=== PATIENT | female | born 1980 | race Caucasian/White ===

== ENCOUNTER 2020-03-23 18:37 | Emergency (ER) | payer OTHER, SELFPAY ==
[2020-03-23 18:45] VITALS: BP 136/74; PULSE 61; RESP 20; TEMP 37.2; O2SAT 99
--- NOTE | 2020-03-23 18:46 | ED.URI ---
HPI - URI/Sore Throat General Chief Complaint: Upper Respiratory Infection Stated Complaint: Sore throat Time Seen by Provider: 03/23/20 18:47 Source: patient and RN notes reviewed History of Present Illness HPI Narrative: Patient is a 39-year-old female who presents the urgent care with complaints of a sore throat. Patient states that she woke up with a scratchy throat yesterday and then a sore throat this morning. Patient states she also has a low-grade fever. Patient states she is prone to strep but denies any recent exposure. States that her ex- did have the kids last week and he is a nurse who was exposed to COVID and did test positive. Patient states that the child that stated her house was not exposed that she has not seen the child but is living with him since the positive test result. States that her children both tested negative. Otherwise patient denies of any other recent exposure to COVID. No other acute complaints. No acute distress noted. Patient has not taken anything for her symptoms [id number]. Patient aware of the plan of care. Related Data Home Medications Medication Instructions Recorded Confirmed No Home Medications 03/23/20 03/23/20 Allergies Allergy/AdvReac Type Severity Reaction Status Date / Time amoxicillin AdvReac Mild MAKES SICK Verified 09/17/18 17:29 clavulanic acid AdvReac Mild MAKES SICK Verified 09/17/18 17:29 Review of Systems Review of Systems: Narrative: CONSTITUTIONAL:reports of low grade fever EYES: Denies visual changes, redness, or discharge. ENT: reports of sore throat CARDIOVASCULAR: Denies chest pain, palpitations, or edema. RESPIRATORY: Denies cough or dyspnea. GASTROINTESTINAL: Denies abdominal pain, nausea, vomiting, or diarrhea. GENITOURINARY: Denies dysuria or hematuria. SKIN: Denies rash or itching. MUSCULOSKELETAL: Denies back pain, joint pain, or myalgia. NEUROLOGIC: Denies headache, numbness, or weakness. All other systems reviewed are negative, except as documented in HPI. PMFSH Comments At the time of my signature, I reviewed and agree with the nursing past medical, surgical, social, and family history. There is no relevant family history pertinent to the patient complaint. Exam Narrative: Exam Narrative: GENERAL: This is a well-nourished, well-developed patient, in no apparent distress. HEAD: normocephalic, atraumatic. EYES: PERRL. Sclera clear/white. Vision is grossly intact. EARS: External ears normal, auditory canals clear and without drainage, TMs normal without perforation. Hearing grossly intact. NOSE: External nose normal with no obvious nasal discharge, nares without redness, no rhinorrhea. THROAT: Mucous membranes moist, posterior pharynx clear. Mild erythema in the posterior oropharynx NECK: Neck supple, SKIN: warm, intact with no suspicious lesions or rash, good texture and turgor. NEURO: awake, alert, and oriented to person, place and time. There were no obvious focal neurologic abnormalities. EXTREMITIES: No clubbing, cyanosis, or edema. Course Vital Signs Vital signs: Vital Signs Temperature 99 F 03/23/20 18:45 Pulse Rate 61 03/23/20 18:45 Respiratory Rate 20 03/23/20 18:45 Blood Pressure 136/74 03/23/20 18:45 Pulse Oximetry 99 03/23/20 18:45 Temperature 99 F 03/23/20 18:45 Pulse Rate 61 03/23/20 18:45 Respiratory Rate 20 03/23/20 18:45 Blood Pressure 136/74 03/23/20 18:45 Pulse Oximetry 99 03/23/20 18:45 reviewed MDM - URI/Sore Throat MDM Narrative Medical decision making narrative: Reviewed lab results with the patient. Patient is aware that strep swab was negative. Educated patient on culture and we will call within 72 hours if culture is positive and antibiotics are necessary. Advised the patient to remain quarantined until she has a negative COVID swab. Use [id number] medication as needed for symptom relief such as Zyrtec/Claritin and Flonase nasal spray. Use Tylenol/ibuprofe
== END 2020-03-23 19:16 | disposition home or self-care (01) ==
PROVIDERS: Emergency Provider Nurse Practitioner Family
DX: J02.9 Acute pharyngitis, unspecified (principal); Z20.828 Contact with and (suspected) exposure to other viral communicable diseases
CPT/HCPCS: 87081; 87880; 99213; G0463

== ENCOUNTER 2021-11-24 09:27 | Emergency (ER) | payer OTHER, SELFPAY ==
--- NOTE | 2021-11-24 09:30 | ED.URI ---
HPI - URI/Sore Throat General Chief Complaint: Back Pain/Injury Stated Complaint: fever aches and headache Time Seen by Provider: 11/24/21 09:30 Source: patient and RN notes reviewed History of Present Illness HPI Narrative: Patient is a 41-year-old female who presents the urgent care with complaints of sweats, body aches, headache and low back pain. Patient states that she woke up this morning with chills and sweats at 4 AM and took Advil. Patient denies of any urinary symptoms. Denies of any known ill exposures. Denies of any nausea or vomiting. Denies a sore throat. No other acute complaints. No acute distress noted. Patient aware of the plan of care. Some parts of this dictation were generated by voice recognition software and may contain typographical and/or grammatical inaccuracies. Related Data Allergies Allergy/AdvReac Type Severity Reaction Status Date / Time amoxicillin AdvReac Mild MAKES SICK Verified 11/24/21 09:50 clavulanic acid AdvReac Mild MAKES SICK Verified 11/24/21 09:50 Review of Systems Review of Systems: CONSTITUTIONAL: Reports of chills and sweats EYES: Denies visual changes, redness, or discharge. ENT: Denies rhinorrhea, congestion, sore throat, or otalgia. CARDIOVASCULAR: Denies chest pain, palpitations, or edema. RESPIRATORY: Denies cough or dyspnea. GASTROINTESTINAL: Denies abdominal pain, nausea, vomiting, or diarrhea. GENITOURINARY: Denies dysuria or hematuria. SKIN: Denies rash or itching. MUSCULOSKELETAL: Reports of low back pain. Reports of body aches NEUROLOGIC: Reports of headache All other systems reviewed are negative, except as documented in HPI. PMFSH Comments At the time of my signature, I reviewed and agree with the nursing past medical, surgical, social, and family history. There is no relevant family history pertinent to the patient complaint. Exam Narrative: GENERAL: This is a well-nourished, well-developed patient, in no apparent distress. HEAD: normocephalic, atraumatic. EYES: PERRL. Sclera clear/white. Vision is grossly intact. EARS: External ears normal, auditory canals clear and without drainage, TMs normal without perforation. Hearing grossly intact. NOSE: External nose normal with no obvious nasal discharge, nares without redness, no rhinorrhea. THROAT: Mucous membranes moist. Moderate erythema noted posterior oropharynx with mild bilateral tonsillar edema with bilateral exudate and moderate postnasal drainage NECK: Neck supple CARDIOVASCULAR: Regular rate and rhythm without murmurs, gallops, or rubs. RESPIRATORY: Clear to auscultation. Breath sounds equal bilaterally. No wheezes, rales, or rhonchi. SKIN: warm, intact with no suspicious lesions or rash, good texture and turgor. NEURO: awake, alert, and oriented to person, place and time. There were no obvious focal neurologic abnormalities. EXTREMITIES: No clubbing, cyanosis, or edema. BACK:No flank tenderness. Course Course Level of Care: Express Care Visit Vital Signs Vital signs: Vital Signs Temperature 98.2 F 11/24/21 09:34 Pulse Rate 80 11/24/21 09:34 Respiratory Rate 20 11/24/21 09:34 Blood Pressure 112/53 L 11/24/21 09:34 Pulse Oximetry 99 11/24/21 09:34 Temperature 98.2 F 11/24/21 09:34 Pulse Rate 80 11/24/21 09:34 Respiratory Rate 20 11/24/21 09:34 Blood Pressure 112/53 L 11/24/21 09:34 Pulse Oximetry 99 11/24/21 09:34 Reviewed MDM - URI/Sore Throat MDM Narrative Medical decision making narrative: Reviewed lab results with the patient. Urine analysis is not indicative of a urinary tract infection. She is aware that flu swab was negative. Strep swab was positive. Advised patient complete the oral antibiotic regimen as prescribed. Be sure to eat and drink with the medication. You are considered contagious for 24 hours after the start of antibiotics and must be fever free. Use Tylenol/ibuprofen as needed. Increase your water intake and rest. Follow-up with your PCP
[2021-11-24 09:34] VITALS: BP 112/53; PULSE 80; RESP 20; TEMP 36.8; O2SAT 99
== END 2021-11-24 10:05 | disposition home or self-care (01) ==
PROVIDERS: Emergency Provider Nurse Practitioner Family
DX: J02.0 Streptococcal pharyngitis (principal)
CPT/HCPCS: 81003; 87804; 87880; 99213; G0463

== ENCOUNTER 2022-04-17 12:01 | Emergency (ER) | payer OTHER, SELFPAY ==
[2022-04-17 12:07] VITALS: BP 114/66; PULSE 65; RESP 16; TEMP 37; O2SAT 100
--- NOTE | 2022-04-17 12:10 | ED.EAR ---
HPI - Ear Problem General Chief complaint: Upper Respiratory Infection Stated complaint: sore throat headache earache Time Seen by Provider: 04/17/22 12:10 Source: patient and RN notes reviewed History of Present Illness HPI Narrative: Patient is a 41-year-old female who presents to urgent care with complaints of sore throat, headache, bilateral earache and neck ache. Patient states her symptoms started last night and a coworker said that she felt warm . Patient denies any fevers, nausea, vomiting. Denies any ill exposures. States that she has been taking Advil for her symptoms. No acute distress noted. Patient read the plan of care. Some parts of this dictation were generated by voice recognition software and may contain typographical and/or grammatical inaccuracies. Related Data Home Medications Medication Instructions Recorded Confirmed No Home Medications 04/17/22 04/17/22 Allergies Allergy/AdvReac Type Severity Reaction Status Date / Time amoxicillin AdvReac Mild MAKES SICK Verified 04/17/22 12:21 clavulanic acid AdvReac Mild MAKES SICK Verified 04/17/22 12:21 Review of Systems Review of Systems: CONSTITUTIONAL: Denies fever, chills, or sweats. EYES: Denies visual changes, redness, or discharge. ENT: Reports of postnasal drainage, mild sore throat bilateral otalgia and neck discomfort CARDIOVASCULAR: Denies chest pain, palpitations, or edema. RESPIRATORY: Denies cough or dyspnea. GASTROINTESTINAL: Denies abdominal pain, nausea, vomiting, or diarrhea. GENITOURINARY: Denies dysuria or hematuria. SKIN: Denies rash or itching. MUSCULOSKELETAL: Denies back pain, joint pain, or myalgia. NEUROLOGIC: Denies headache, numbness, or weakness. All other systems reviewed are negative, except as documented in HPI. PMFSH Comments At the time of my signature, I reviewed and agree with the nursing past medical, surgical, social, and family history. There is no relevant family history pertinent to the patient complaint. Exam Narrative: GENERAL: This is a well-nourished, well-developed patient, in no apparent distress. HEAD: normocephalic, atraumatic. EYES: PERRL. Sclera clear/white. Vision is grossly intact. EARS: External ears normal, auditory canals clear and without drainage, TMs normal without perforation. Hearing grossly intact. NOSE: External nose normal with no obvious nasal discharge, nares without redness, clear rhinorrhea. THROAT: Mucous membranes moist, posterior pharynx clear. Mild postnasal drainage NECK: Neck supple, non-tender without lymphadenopathy CARDIOVASCULAR: Regular rate and rhythm without murmurs, gallops, or rubs. RESPIRATORY: Clear to auscultation. Breath sounds equal bilaterally. No wheezes, rales, or rhonchi. SKIN: warm, intact with no suspicious lesions or rash, good texture and turgor. NEURO: awake, alert, and oriented to person, place and time. There were no obvious focal neurologic abnormalities. EXTREMITIES: No clubbing, cyanosis, or edema. Course Course Level of Care: Express Care Visit Vital Signs Vital signs: Vital Signs Temperature 98.6 F 04/17/22 12:07 Pulse Rate 65 04/17/22 12:07 Respiratory Rate 16 04/17/22 12:07 Blood Pressure 114/66 04/17/22 12:07 Pulse Oximetry 100 04/17/22 12:07 Oxygen Delivery Room Air 04/17/22 12:07 Temperature 98.6 F 04/17/22 12:07 Pulse Rate 65 04/17/22 12:07 Respiratory Rate 16 04/17/22 12:07 Blood Pressure 114/66 04/17/22 12:07 Pulse Oximetry 100 04/17/22 12:07 Oxygen Delivery Room Air 04/17/22 12:07 Reviewed Medical Decision Making MDM Narrative Medical decision making narrative: Reviewed lab results with the patient. She is aware that strep swab is negative. Educated patient on culture we will call within 72 hours if culture is positive and antibiotics are necessary. Advised the patient to use [id number] medication as needed for symptom relief such as Zyrtec/Claritin/Benadryl/Flonase. Incr
== END 2022-04-17 12:43 | disposition home or self-care (01) ==
PROVIDERS: Emergency Provider Nurse Practitioner Family
DX: J02.9 Acute pharyngitis, unspecified (principal)
CPT/HCPCS: 87081; 87880; 99213; G0463

== ENCOUNTER 2023-02-05 02:06 | Day surgery (SDC) | payer OTHER, SELFPAY ==
[2023-01-28 12:53] VITALS: BMI 31.2
--- NOTE | 2023-01-28 13:00 | PC.NURSE ---
Addendum entered by Unique Babin RN 01/30/23 09:03: PT TO ARRIVE AT 0600 ON 02/05/23 FOR SURGERY AT 0730. Original Note: Report to the Outpatient Waiting Room, entrance under the green pavilion located off [facility], at time _0730__ on date _02/04/23_. Planned Procedure Time: _929_. Time changes happen often and if your time is changed the preop area will call you the afternoon before. - You and your visitor will be asked to self-screen and do not enter if you have any COVID symptoms. - A mask is optional within the hospital at this time. Patients may have clear liquids (water, carbonated beverages, clear teas, apple juice) until 3 hours prior to surgery with a maximum of 20 ounces. - No food from midnight until time of surgery - Infants may have breast milk until 4 hours before surgery, formula 6 hours prior to surgery. - Children will be allowed to drink immediately following surgery. If applicable, please bring a bottle or sippy cup to assist with drinking. Juice, water, soda, and popsicles are readily available. For infants on formula, please bring formula the day of surgery. Pacifiers are allowed. Take the following medications with a SIP of water the morning of surgery: NONE DO NOT STOP ANY OF YOUR OTHER PRESCRIPTION MEDICATIONS PRIOR TO SURGERY ?EXCEPT THE FOLLOWING Medications to discontinue per physician NONE Date to take last dose Please no make-up, nail somali, hairspray, perfume, deodorant, or body powder the day of surgery. No jewelry (including any body piercings) or valuables the day of surgery, leave them at home. Please take a shower or bath the night before, or the morning of, surgery with an antibacterial soap. Wear comfortable, loose fitting clothing. Children are encouraged to wear pajamas. - Jewelry must be removed prior to entering the operating room. Rings and piercings that are not removed may be cut off. - The hospital will not accept responsibility for valuables. - Please leave all valuables, including medications, at home the day of surgery. If you are going home after surgery, a licensed commercial relief driver must drive you home. - NO public transportation without another adult if you receive anesthesia. - We recommend that an adult stay with you for 24 hours following discharge. - We also recommend that you do not drive, make important decision, drink alcoholic beverages, or take any drugs that were not prescribed by your health care provider for at least 24 hours after your discharge time. For Pediatric surgeries, we recommend two adults accompany the child home. Follow any additional instructions given to you from your surgeon. If you or anyone in your household have experienced Covid symptoms in the past week, please notify your surgeon or the nurse liaison at the phone number below for possible testing. Telephone instructions given to __BEER and asked if any additional questions and then verbalized understanding. Patient advised to call surgeon office or pre surgery nurse liaison [phone] if any additional questions.
--- NOTE | 2023-01-30 09:03 | PC.NURSE ---
Pt states no changes in medications or history since initial interview. New pre-op instructions reviewed with pt. Pt denies further questions at this time.
[2023-02-05] VITALS (10 sets, daily range): BP systolic 107–142; BP diastolic 68–87; PULSE 44–80; RESP 12–20; TEMP 36.4–36.6; O2SAT 100
[2023-02-05] MEDS: LACTATED RINGERS 1,000 ML 30 ML IV CONT ×3 (06:25→10:20)
[2023-02-05] MEDS: ACETAMINOPHEN 500 MG TABLET 1000 MG PO (06:27)
[2023-02-05] MEDS: KETOROLAC 15 MG/ML VIAL (*BKC) IV PUSH (06:27)
--- NOTE | 2023-02-05 06:37 | P.PNAN_ITS ---
Anes - Initial Pre Proc Eval Procedure: Operation Date: 02/05/23 07:30 Proposed Procedures p Hysteroscopy, Minnie Endometrial Ablation with Intrauterine Device Removal, - Lana Warren MD s Laparoscopic Bilateral Salpingectomy, Right Oophorectomy - Lana Warren MD Date/Time: 02/05/23 06:37 Surgeon: Lana Warren MD Pre Op Diagnosis: cyst of ovaries, menorrhagia Patient Data Age: 42 Gender: F Height: 1.6 m Weight: 80 kg Allergies Allergy/AdvReac Type Severity Reaction Status Date / Time morphine AdvReac Intermediate Itching Verified 01/30/23 09:03 amoxicillin AdvReac Mild MAKES SICK Verified 01/30/23 09:03 clavulanic acid AdvReac Mild MAKES SICK Verified 01/30/23 09:03 Home Medications Medication Instructions Recorded Confirmed Type No Home Medications 04/17/22 01/30/23 History Patient hx anesthesia problems: none Family hx anesthesia problems: none Results Review: All pre-operative results and documents have been reviewed as part of the pre- operative evaluation. [facility] Social History Social History Smoking packs per day: 1.5 Smoking cigarettes per day: 30.0 Years smoked: 20 Smoking pack-years: 30.00 Tobacco type: e-cigarettes/vaping Additional smoking assessment comments: VAPING FOR 2 YRS, NO LONGER SMOKING CIGARETTES Alcohol intake: never Substance use type: marijuana Other substance usage details: DAILY Living arrangements: with family Anes - Eval Final PreProcedure Day of Procedure 02/05/23 06:37 Patient weight: overweight Heart: regular rate and rhythm Lungs: clear to auscultation Airway: Mallampati scale class 1 Neurological: alert and oriented Last oral intake: >/= 8 hours ASA classification: II Emergent: no Anesthetic plan: proceed Anesthesia type and monitoring: general ETT and standard monitoring Results Review: All pre-operative results and documents have been reviewed as part of the pre- operative evaluation. Informed Consent: The patient's anesthetic plan and its attendant risks and benefits were discussed with the patient/family/POA. Questions were solicited and answers provided to the satisfaction of the patient/family/POA.
--- NOTE | 2023-02-05 07:53 | WPDHPUPDATE1 ---
History and Physical Update Update Date/Time: 02/05/23 07:53 to remove IUD as well History and Physical has been reviewed, including an updated exam of the patient. There are NO changes in the patient's condition. Risks, benefits, and alternatives have been discussed and questions answered. Patient agrees to proceed with procedure.
[2023-02-05] MEDS: fentaNYL CITRATE INJ (*CRX) 100 MCG/2 ML VIAL 25 MCG IV PUSH ×8 (09:20→11:15)
--- NOTE | 2023-02-05 09:38 | P.OP_ITS ---
Procedure Note - Detailed Date of Procedure 02/05/23 Pre-op Diagnosis cyst of ovaries, menorrhagia Post-op Diagnosis Same Procedure Performed Risk optic bilateral salpingectomy and left oophorectomy, endometrial ablation and hysteroscopy Surgeon Lana Warren MD Anesthesia General Indications Pelvic pain Findings normal-appearing fallopian tubes, normal-appearing right ovary, large left ovarian cyst, approximately 8 cm. Normal vulva, vagina, cervix, normal e ndometrium Description of Procedure The patient was taken to the operating room. She was prepped and draped in the dorsal lithotomy position after induction general anesthesia. A 5 mm incision was made with a scalpel on the abdominal skin in the left upper quadrant of the abdomen. A 5 mm trocar was inserted into the intra-abdominal cavity under d irect visualization the scope. In the same fashion a 15 mm left lower quadrant trocar was inserted and a 5 mm infraumbilical trocar was inserted. bilateral salpingectomy performed using LigaSure cautery. Mesosalpinx around the ovaries were cauterized transected with LigaSure cautery. The tube was transected at the uterine cornua. Regarding the right ovary,The infundibulopelvic ligament and the uterine artery were cauterized transected along with paraovarian mesosalpinx. The large cyst was placed in endobag and taken out the left lower quadrant trocar site. bilateral fallopian tubes taken out the left lower quadrant trocar site.The pelvis was irrigated. The pneumoperitoneum was reduced. The trocars were removed. Skin was closed with subcuticular 4 micro. The patient's incisions were covered with Dermabond. Speculum placed in vagina. Cervix grasped with tenaculum. Cervix dilated to about 8 mm. The hysteroscope was inserted and the above findings were noted. The measurements were taken of the endometrial cavity. The Minnie device was inserted and expanded. The energy cycle was initiated. Once completed the hysteroscope was reinserted and there was a good cauterization of the uterine surfaces. She was taken recovery room in stable condition. Sponge lap and needle counts were correct x2. Estimated Blood Loss -20.0 Complications No immediate complications Condition Stable Disposition Same day
[2023-02-05] MEDS: oxyCODONE HCL (*CRX) 5 MG TAB IR PO (10:44)
== END 2023-02-05 11:45 | disposition home or self-care (01) ==
PROVIDERS: Visit Provider Obstetrics & Gynecology
PROC: 0U5B8ZZ Destruction of Endometrium, Via Natural or Artificial Opening Endoscopic (ICD-10-PCS; CPT 58563; principal; 2023-02-05 07:30)
PROC: (CPT 49320; 2023-02-05 07:30)
DX: N92.0 Excessive and frequent menstruation with regular cycle (principal); D27.1 Benign neoplasm of left ovary; N83.8 Other noninflammatory disorders of ovary, fallopian tube and broad ligament; F17.290 Nicotine dependence, other tobacco product, uncomplicated; F12.90 Cannabis use, unspecified, uncomplicated
CPT/HCPCS: 58661; 58563; 88305; A9270; J1100; J1885; J2250; J2405; J2704; J2710; J3010; J7030; J7120

== ENCOUNTER 2023-02-21 00:26 | Emergency (ER) | payer OTHER, SELFPAY ==
--- NOTE | ~2023-02-21 | CT_ITS ---
EXAMINATION: CT abdomen pelvis w con DATE: 02/21/2023 07:29 INDICATION: Abdominal pain. Recent intra-abdominal surgery. TECHNIQUE: Computed tomography (CT) of the abdomen and pelvis was performed with 100 CC Omnipaque 350 intravenous contrast. Automated exposure control and iterative reconstruction technique were employe d. Exam dose: 784.32 mGy-cm total exam DLP. COMPARISON: September 21, 2015 CT abdomen pelvis FINDINGS: The liver, gallbladder, bile ducts, spleen, pancreas, pancreatic duct and adrenal glands ar e unremarkable. 9 mm left renal cyst. No renal mass lesion is noted otherwise. No urinary tract calculus or hydrouret eronephrosis. The urinary bladder is unremarkable. The uterus measures up to almost 12 cm vertical dimension, 4.7 cm AP dimension with fluid in the endo metrial cavity measuring up to 1.3 cm AP dimension. Up to approximately 3 cm right ovarian cyst. Normal caliber of the abdominal aorta. No intraperitoneal or retroperitoneal or pelvic mass lesion or adenopathy or ascites is noted. Normal appendix. No bowel obstruction, bowel wall thickening, pneumatosis or intraperitoneal free air is detected. Very small fat-containing umbilical hernia. Included skeletal structures are unremarkable. IMPRESSION: Annular left renal cyst Uterine enlargement with prominent fluid collection in the endometrial cavity Approximately 3 thyroid ovarian cyst Normal appendix Reviewed, dictated and finalized at [facility]. Reviewed, dictated and finalized at [facility].
[2023-02-21 00:37] VITALS: BP 136/84; PULSE 64; RESP 14; TEMP 36.3; O2SAT 99
[2023-02-21 00:39] LABS: Basophils Absolute Auto 0.1 K/mm3 (0.0-0.1); Basophils Percent Auto 0.5 % (0.2-1.2); Eosinophils Absolute Auto 0.1 K/mm3 (0-0.3); Eosinophils Percent Auto 1.4 % (0-4.4); Hematocrit 34.5 % (37.0-47.0); Hemoglobin 11.4 g/dL (12.0-15.0); Immature Granulocyte Absolute 0.02 K/mm3 (0.00-0.031); Immature Granulocyte Percent A 0.2 % (0-0.5); Lymphocytes Absolute Auto 2.92 K/mm3 (0.9-3.2); Lymphocytes Percent Auto 28.6 % (18.3-44.2); Mean Corpuscular Volume 96.9 fl (80-100); Mean Platelet Volume 10.3 fl (7.4-10.4); Monocytes Absolute Auto 0.8 K/mm3 (0.1-0.6); Monocytes Percent Auto 7.4 % (2.6-8.5); Neutrophils Absolute Auto 6.3 K/mm3 (1.3-6.7); Neutrophils Percent Auto 61.9 % (45.5-73.1); Platelet Count Result 359 k/mm3 (150-375); Red Blood Count 3.56 M/mm3 (4.2-5.4); Red Cell Distribution Width 13.3 % (11.5-14.5); White Blood Count 10.2 K/mm3 (4.5-10.0)
[2023-02-21 00:51] LABS: Alanine Aminotransferase 19 U/L (6-35); Albumin Level 3.8 g/dL (3.5-5.1); Alkaline Phosphatase 42 U/L (38-126); Anion Gap 6 mmol/L (8-16); Aspartate Amino Transferase 20 U/L (14-36); Bilirubin,Total 0.2 mg/dL (0.2-1.3); Blood Urea Nitrogen 13 mg/dL (7-17); Calcium 8.2 mg/dL (8.4-10.2); Carbon Dioxide 25 mmol/L (22-30); Chloride 103 mmol/L (98-107); Estimated CRCL calculation 110 ml/min; Estimated Glomerular Filt Rate > 60; Glucose 126 mg/dL (65-110); Lipase 42 U/L (23-300); Potassium 3.7 mmol/L (3.4-5.0); Sodium 134 mmol/L (137-145)
--- NOTE | 2023-02-21 05:15 | ED.GENADULT ---
HPI - General Adult General Chief complaint: Abdominal Pain <Robin Monge MD - Last Filed: 02/21/23 05:17> Stated complaint: surgery on the , shooting pain in lower abd <Robin Monge MD - Last Filed: 02/21/23 05:17> Time Seen by Provider: 02/21/23 05:03 <Robin Monge MD - Last Filed: 02/21/23 05:17> History of Present Illness HPI narrative: Patient 42-year-old female who presents emerged department with chief complaint of abdominal pain. Patient reports that she had a recent surgery by RN SURGICAL and reports that she has been having pain since surgery. Patient reports she is taking 5 mg oxycodones without improvement in her symptoms and reports that this evening she started having worsening pain in the suprapubic region that radiated up through her abdomen. The patient reports that she is felt nauseated with this denies fever reports that of the left port site incision had a small lump that has been coming and going in the area. The patient reports she has seen her surgeon in the last week <Robin Monge MD - Last Filed: 02/21/23 05:17> Related Data Allergies/adverse reactions: Allergies Allergy/AdvReac Type Severity Reaction Status Date / Time morphine AdvReac Intermediate Itching Verified 02/21/23 00:28 amoxicillin AdvReac Mild MAKES SICK Verified 02/21/23 00:28 clavulanic acid AdvReac Mild MAKES SICK Verified 02/21/23 00:28 <Robin Monge MD - Last Filed: 02/21/23 05:17> Review of Systems Review of Systems: A 10 system review of systems was completed on the patient and is negative except for what is stated in the HPI. Nursing and ancillary documentation was reviewed. <Robin Monge MD - Last Filed: 02/21/23 05:17> [facility] Social History Social History: Social History Smoking packs per day: 1.5 Smoking cigarettes per day: 30.0 Years smoked: 20 Smoking pack-years: 30.00 Tobacco type: e-cigarettes/vaping Additional smoking assessment comments: VAPING FOR 2 YRS, NO LONGER SMOKING CIGARETTES Alcohol intake: never Substance use type: marijuana Other substance usage details: DAILY Living arrangements: with family <Robin Monge MD - Last Filed: 02/21/23 05:17> Exam Narrative: GENERAL: Well-appearing, well-nourished, and in no acute distress. HEAD: Normocephalic, atraumatic. EYES: PERRLA and EOMI. ENT: Nares clear, no rhinorrhea or epistaxis. Mucous membranes moist. NECK: Supple. CHEST: Clear to auscultation. No respiratory distress. HEART: Regular rate and rhythm. No murmur heard. Normal peripheral pulses. ABDOMEN: Soft, diffuse mild tenderness, nondistended, normal active bowel sounds. EXTREMITIES: Normal range of motion. No edema. SKIN: Warm, dry, no rash. NEURO: No focal deficits. Alert and oriented x3. PSYCH: Normal mood and affect. <Robin Monge MD - Last Filed: 02/21/23 05:17> Course Reevaluation(s) Reevaluation #1: Patient signed out to me pending CT; she had had ovary/tube removal w/ Dr Briana 2 weeks ago and had some cramping abdominal pain since then. She was ambulating with normal steady gait up to the nursing area multiple times, upset and asking for updates. CT resulted at 09:23am and after reviewing the radiology report and her labs which were within acceptable limits, I did go explain the findings to the patient at 9:40am, I did apologize for the long turnaround times and she was extremely upset about how long she was waiting and for not having a good answer to her pain and for not checking her chart (although I had already reviewed it and was about to go through the entire report with her on the computer). She demanded to leave and have her IV pulled out. I have let her know she should follow up with her OBGYN in 1-2 days and to return to the ER if she feels worse. I was informed by stephan
[2023-02-21] MEDS: SODIUM CHLORIDE 0.9% IV 1,000 ML 999 ML IV CONT (05:25)
[2023-02-21] MEDS: ONDANSETRON INJ 4 MG/2 ML VIAL IV PUSH (05:26)
[2023-02-21] MEDS: HYDROmorphone HCL INJ (*CRX) 1 MG/ML SYR IV PUSH ×2 (05:26→08:06)
[2023-02-21 05:39] LABS: Appearance Urine Cloudy (Clear); Bacteria Urine 2+ /hpf; Bilirubin Urine Negative (Negative); Blood Urine Trace (Negative); Color Urine Yellow (Yellow); Glucose Urine UA Negative (Negative); Ketones Urine Negative (Negative); Leukocyte Esterase Ur Negative LEU/UL (Negative); Nitrate Urine Negative (Negative); Non Pathogenic Casts 0-2; Protein Urine Negative (Negative); RBC Urine 0-2 /hpf (0-2); Specific Grav Ur 1.019 (1.001-1.035); Squamous Epithelial Cell Urine Moderate /hpf (Few); Urobilinogen Urine 0.2 mg/dL (<2.0); WBC Urine 0-5 /hpf; pH Urine 5.5 (5.0-9.0)
[2023-02-21 05:49] LABS: Add Urine Microscopic? YES
[2023-02-21 06:12] VITALS: BP 112/96; PULSE 52; RESP 13; O2SAT 99
[2023-02-21 07:51] VITALS: BP 125/85; PULSE 56; RESP 16; O2SAT 100
[2023-02-21 09:23] VITALS: BP 115/74; PULSE 45; RESP 12; O2SAT 96
--- NOTE | 2023-02-21 09:23 | PC.NURSE ---
Resting on cart awaiting CT report.
--- NOTE | 2023-02-21 09:50 | PC.NURSE ---
Pt upset with length of stay. ERP in to speak with pt.
[2023-02-21 09:53] VITALS: BP 105/73; PULSE 50
--- NOTE | 2023-02-21 09:53 | PC.NURSE ---
Pt ambulatory out of dept with family. Left without discharge instructions.
== END 2023-02-21 09:53 | disposition home or self-care (01) ==
PROVIDERS: Emergency Medicine; Emergency Provider Emergency Medicine
DX: G89.18 Other acute postprocedural pain (principal); R10.30 Lower abdominal pain, unspecified; F17.290 Nicotine dependence, other tobacco product, uncomplicated
CPT/HCPCS: 36415; 74177; 80053; 81001; 83690; 85025; 96361; 96374; 96375; 96376; 99284; J1170; J2405; J7030; Q9967

== ENCOUNTER 2025-01-24 18:30 | Emergency (ER) | payer OTHER, SELFPAY ==
--- OUTSIDE RECORDS SUMMARY | 2025-01-24 18:31 | XMS_ITS | Clinical Summary ---
Author Organization [facility] Address [address] [place] [phone] Phone Care Team Providers Care Preschool Lead Teacher Name Role Phone Provider, Unknown Primary Care Provider Unavaila ble Allergies Active Allergy Reactions Criticality Noted Date Comments Amoxicillin-Pot Clavulanate Other (see Comments) High 03/27/2020 Light head and dizzy Medications No known medications Social History Tobacco Use Types Packs/Day Years Used Date Smoking Tobacco: Never Assessed Comments Unknown Sex and Gender Information Value Date Recorded Sex Assigned at Not on file Legal Sex Female 8:01 PM CDT Gender Identity Not on file Sexual Orientation Not on file Plan of Treatment Health Maintenance Due Date Last Done Comments Hepatitis C Virus (HCV) Screening 1982 TdaP Immunization 1982 Human Papillomavirus (HPV) Immunization (1 - 3-dose series) 1997 Hepatitis B Immunization (1 of 3 - 19+ 3-dose series) 2001 SARS-COV-2 Immunization ( season) 2024 Influenza Immunization (Seas on Ended) 2025 Respiratory Syncytial Virus (RSV) Immunization (Adult) (1 - 1-dose 75+ series) 2057 Meningococcal Immunization (ACWY) Aged Out No longer eligible based on patient's age to complete this topic Pneumococcal Immunization Combined Aged Out No longer eligible based on patient's age to complete this topic Rotavirus Immunization Aged Out No lo nger eligible based on patient's age to complete this topic Insurance MEDICAID [employer] Care Teams Preschool Lead Teacher Relationship Specialty Start Date End Date Provider, Unknown UNKNOWN PCP - General 03/27/20
--- OUTSIDE RECORDS SUMMARY | 2025-01-24 18:31 | XMS_ITS | Clinical Summary ---
Author Organization [facility] Address [address] [place] [address] Care Team Providers Care Manager Licensing Name Role Phone No, Physician Primary Care Provider [phone] Allergies No known active allergies Medications LORazepam (ATIVAN) 0.5 mg tabletIndicatio ns:anxiety Take 1 tablet (0.5 mg total) by mouth 3 (three) times a day as needed for anxiety. 6 tablet 07/08/2018 Active LORazepam (Ativan) 1 mg tabletIndicatio ns:Stress reaction Take 0.5 tablets (0.5 mg total) by mouth 3 (three) times a day as needed for anxiety 10 tablet 05/28/2023 Active HYDROcodone-autumn taminophen (NORCO) 5-325 mg per tabletIndicatio ns:Pain Take 1-2 tablets by mouth every 4 (four) hours as needed for pain Do not exceed 8 tablets/day. 12 tablet 08/20/2023 Active Medical History Medical History Date Comments Migraine Anxiety Social History Tobacco Use Types Packs/Day Years Used Date Smoking Tobacco: Never Assessed Personal Safety Answer Date Recorded Have you ever been in or are you currently in a harmful physical or emotional relationship or is someone making you feel afraid or unsafe? 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 Gender Identity Not on file Sexual Orientation Not on file Obstetrics History Last Filed Vital Signs Vital Sign Reading Time Taken Comments Blood Pressure 112/76 08/20/2023 11:04 AM AIRPLANE ENGINEER Pulse 59 08/20/2023 11:04 AM AIRPLANE ENGINEER Temperature 36.7 C (98.1 F) 08/20/2023 11:04 AM AIRPLANE ENGINEER Respiratory Rate 16 08/20/2023 9:45 AM AIRPLANE ENGINEER Oxygen Saturation 99% 08/20/2023 11:04 AM AIRPLANE ENGINEER Inhaled Oxygen Concentration - - Weight 79.4 kg (175 lb) 08/20/2023 9:45 AM AIRPLANE ENGINEER Height 160 cm (5' 3) 08/20/2023 9:45 AM AIRPLANE ENGINEER Body Mass Index 31 08/20/2023 9:45 AM AIRPLANE ENGINEER Plan of Treatment Health Maintenance Due Date Last Done Comments Breast Cancer Screening-Mammogram 1982 Cervical Cancer Screening 1982 Depression Screening 1982 Hepatitis C Screening 1982 Varicella Vaccines (1 of 2 - 13+ 2-dose series) 1995 Hepatitis B Screening 2000 Regular Well Visit/Exam 18-64 2000 DTaP/Tdap/Td Vaccine (2 - Td or Tdap) 06/18/2020 06/18/2010 Influenza Vaccine (Season Ended) 2025 05/26/2014, 04/26/2010 HPV Vaccines Aged Out No longer eligi ble based on patient's age to complete this topic Pneumococcal vaccine <65 Aged Out No longer eligible based on patient's age to complete this topic Insurance [facility] Care Teams Manager Licensing Relationship Specialty Start Date End Date No, Physician PCP - General 05/28/23
--- OUTSIDE RECORDS SUMMARY | 2025-01-24 18:31 | XMS_ITS | Data Portability ---
Author Organization [facility] [place] Address [address] [place] [address] [place] [address] Assessment No assessment recorded. Plan of Treatment Reminders Order Date Submit Date Provider Last Modified By Organization Details Last Modified Time Details Appointments None recorded. Lab None recorded. Referral None recorded. Procedures None recorded. Surgeries None recorded. Imaging US, pelvis 2023 [email or web address], [address], [place], [address], 4 15:07:34 US, transvagina l [email or web address], [facility] [address], [place], [address], 4 15:07:34 US, pelvis [email or web address], [facility] [address], [place], [address], 3 23:56:34 US, transvagina l [email or web address] [facility] [address], [place], [address], 3 23:56:34 Medication Orders None recorded. Patient TargetsNo targets recorded. Patient InstructionsNo instructions recorded. Reason for Referral None Reported. Results Created Date Observation Date Name Description Value Unit Range Abnormal Flag Note LastModifiedBy Organization Detail LastModifiedTime 02/24/20 23 02/21/2023 CT, abdom en + pelvi s, w/ contr ast No observ ation record ed. [email or web address] [facility] [address], [place], [address], 02/26/2023 21:23:42 02/25/20 23 02/24/2023 US, pelvi s No observ ation record ed. [address], [place], [address], 02/24/2023 15:18:35 02/25/20 23 02/24/2023 US, trans vagin al No observ ation record ed. [address], [place], [address], 02/24/2023 15:18:21 02/25/20 23 02/24/2023 US, pelvi s No observ ation record ed. [email or web address] [address], [place], [address], 02/24/2023 23:37:21 08/24/19 24 08/24/2023 US, pelvi s No observ ation record ed. [facility] [place] [address], [place], [address], 08/24/2023 13:07:23 08/24/19 24 08/24/2023 US, trans vagin al No observ ation record ed. [facility] [place] [address], [place], [address], 08/24/2023 13:07:00 08/24/19 24 08/24/2023 US, pelvi s No observ ation record ed. [email or web address] [address], [place], [address], 08/24/2023 14:59:58 Result Notes None recorded. Procedures Surgical History Date Name Laterality Status Provider Name and Address Organization Details Recorded Time 3 HYSTEROSCOPY, WITH ENDOMETRIAL ABLATION (SURG) completed Ambika Espinal [facility] 02/06/2023 10:47:32 delivery completed [facility] 12/25/2022 12:26:16 delivery completed [facility] 12/25/2022 12:26:18 Imaging Results None recorded. Procedure Notes None recorded. Medical Equipment None Reported. Allergies No known drug allergies Medications Name Sig Start Date Stop Date Status Note LastModified by Organization Details LastModified Time oxycodone-a cetaminophe n 5 mg-325 mg tablet TAKE 1 TABLET BY MOUTH EVERY 6 HOURS active Not Available Not Available No t Available lorazepam 1 mg tablet TAKE 1/2 (ONE-HALF ) TABLET BY MOUTH THREE TIMES DAILY NEEDED FOR ANXIETY active Not Available Not Available No t Available Vitals Date Recorded Body height Body mass index (BMI) Body weight Systolic blood pressure Diastolic blood pressure Provider Name and Address Organization Details Last Updated DateTime 08/31/2023 160.02 cm 32.2 kg/m2 43324.81 g 123 mm[Hg] 75 mm[Hg] [facility] 4 11:10:36 Date Recorded Body height Body mass index (BMI) Body weight Systolic blood pressure Diastolic blood pressure Provider Name and Address Organization Details Last Updated DateTime 02/23/2023 160.02 cm 32.6 kg/m2 83190 g 127 mm[Hg] 80 mm[Hg] Lia Sierra [facility] 3 14:08:28 Date Recorded Body height Body mass index (BMI) Body weight Systolic blood pressure Diastolic blood pressure Provider Name and Address Organization Details Last Updated DateTime 03/02/2023 160.02 cm 32.6 kg/m2 41872 g 147 mm[Hg] 89 mm[Hg] [facility] 3 09:30:27 Social History None recorded. Functional Status Question Answer Note LastModified by Organizat ion Details LastModified Time Do you or have you ever used any other forms of tobacco or nicotine? Yes Information not available 12/25/2022 Do you or have you ever used e-cigarettes or vape? Current user of electronic cigarettes vape, daily Information not available 12/25/2022 Mental Status None recorded. Family History Relationship Description Onset Age of this Age Resolved Age Notes LastModified by Organization Details LastModified Time Mother Asthma Not available 12/25/2022 12:23:29 Mother Heart disease Not available 2022 12:23:51 Mother Diabetes mellitus Not available 2022 12:24:09 Mother Hypercholest erolemia Not available 2022 12:24:23 Mother Hypertensive disorder Not available 2022 12:24:34 Father Malignant tumor of colon Not available 2022 12:23:40 Maternal Grandmother Diabetes mellitus Not available 2022 12:24:09 Maternal Grandmother Malignant neoplasm of lung Not available 2022 12:24:51 Paternal Grandmother Diabetes mellitus Not available 2022 12:24:09 Paternal Grandmother Malignant neoplasm of lung Not available 2022 12:24:51 Paternal Grandfather Malignant neoplasm of lung Not available 2022 12:24:55 Sister Polycystic ovary syndrome Not available 2022 12:25:07 Sister Disorder of thyroid gland Not available 2022 12:25:17 Medical History No medical history recorded. Gynecological History Statement/Question Response Abnormal Pap N Date of Last Pap Smear Current Control Method Sterilizati on Desired Control Method Ablation Date of LMP 12/24/2022 Obstetrics History GPAL:G 2 P 2 0 0 2 Type Value Full Term 2 Living 2 Total 2 Past Encounters Encounter ID Performer Location Encounter Start Date Encounter Closed Date Diagnosis/Indication Diagnosis SNOMED-CT Code Diagnosis ICD10 Code Diagnosis Note [id number] Ari Warren MD [place] [address] [address] 12/25/2022 12:09:41 12/26/2022 10:15:40 Premenstrual symptom 51864454 N94.3 Menorrhagia 188446983 N9 2.0 patient is 42-year-ol d female with menorrhagi a who desires female sterilizat ion. She also has severe premenstru al symptoms or perimenstr ual symptoms. We will obtain pelvic ultrasound . We talked about endometria l ablation and female sterilizat ion. We are edithin g mansi. We spent over 40 minutes face-to-fa ce today. More than 50% was counseling . We discussed to complex problems 3 complex problems. Female sterilization 608 29502 Z30.2 [id number] Ari Warren MD [place] [address] [address] 12/29/2022 09:47:40 12/29/2022 10:58:40 Abnormal uterine bleeding 4931780571 9100 N93.9 R10.2 [id number] Ari Warren MD [place] [address] [address] 01/06/2023 14:53:27 01/06/2023 15:40:21 Menorrhagia 193683998 N92.0 this patient is a 42-year-ol d female with severe menorrhagi a. She has a Mirena IUD. She has a very large complex right ovarian cyst. Talked about treatment options today. The right ovarian cyst has a normal CA 125. We agreed to a laparoscop ic removal of the right ovary and tube. We also talked about treatments of her menorrhagi a at that time. We talked about endometria l ablation. Thought about the risks, benefits, and alternativ es to endometria l ablation. Talked about technical details and we reviewed an video of the procedure. We agreed to proceed with laparoscop ic right salpingo-o ophorectom y, left salpingect jarret, IUD removal, endometria l ablation with hysterosco py. Spent over 40 minutes face-to-fa ce. More than 50% was counseling . The decision to perform surgery Cyst of ovary 01013371 N 83.209 [id number] Ari Warren MD [place] [address],[facility] [place] [address] 01/30/2023 12:00:15 01/30/2023 12:45:14 Pain in pelvis 17815822 R10.2 Cyst of ovary 19096394 N 83.209 Menorrhagia 680429725 N9 2.0 this patient is a 42-year-ol d female with pelvic pain, ovarian cyst, menorrhagi a. We agreed to perform laparoscop ic bilateral salpingect jarret right oophorecto my, and endometria l ablation with hysterosco py. She understand s the risks, benefits, and alternativ es. She has completed the informed consent process is ready to proceed. [id number] Ari Warren MD [place] [address],[place] [address] 02/09/2023 10:08:48 02/09/2023 10:10:35 [id number] Ari Warren MD [place] [address],[place] [address] 02/11/2023 17:59:56 02/12/2023 09:43:05 Postoperative pain 061437158 G89.18 42-year-ol d female presents for postop follow-up. She had removal of a very large left ovarian cyst that was ultimately found to be a mucinous cystadenom a. It came through a 15 mm incision site. There is a stitch in the fascia. She has pain at the site. She continues to have pain. She will be treated pain medication . Otherwise she is doing well. She has no foul-smell ing vaginal discharge. She had an endometria l ablation, left oophorecto my, bilateral salpingect jarret. She is recovering normally. [id number] Ari Warren MD [place] [address],[place] [address] 02/23/2023 13:48:10 02/23/2023 14:59:51 Pain in pelvis 93004239 R10.2 this patient is a 42-year-ol d female who presents for ER follow-up. Patient has had left lower quadrant pain that radiates into her groin and suprapubic area. She has a large left lower quadrant incision site for laparoscop y. There is a suture in the fascia in that area. This is the likely etiology of her pain. The ER obtain a CT scan. There is nothing that correlates with her clinical findings. We talked about possible cause of her pain. Is most likely the suture in the fascia. We will obtain a pelvic ultrasound and have the patient back. She has right-side d cystic structure on CT. There is no ovary on this side. [id number] Ari Warren MD [place] [address] [address] 02/24/2023 11:47:11 02/24/2023 12:30:35 Pain in pelvis 04673181 R10.2 this patient is a 42-year-ol d female who presents for ER follow-up. Patient has had left lower quadrant pain that radiates into her groin and suprapubic area. She has a large left lower quadrant incision site for laparoscop y. There is a suture in the fascia in that area. This is the likely etiology of her pain. The ER obtain a CT scan. There is nothing that correlates with her clinical findings. We talked about possible cause of her pain. Is most likely the suture in the fascia. We will obtain a pelvic ultrasound and have the patient back. She has right-side d cystic structure on CT. There is no ovary on this side. [id number] Ari Warren MD [place] [address] [address] 03/02/2023 09:14:36 03/02/2023 14:49:56 Cyst of ovary 23210663 N83.209 Patient is a 42-year-ol d female presents for follow-up on pelvic pain. She had a pelvic ultrasound . Some right ovarian cysts were appreciate d. There are to that together measure 5 cm. They are adjacent to each other. These occurred over short period time and are not likely to be the serous cystadenom a type lesion that was found on her left ovary. She had a large left-sided serous cystadenom a that was removed. She is having some postoperat sandie pain still. She had a large incision site on the left for the large bag that was required. She has pain rating aiding into her groin. It is improving slowly. When the delayed absorbable suture breaks down she should be much improved. We continued to we agreed to continue to watch. We will repeat ultrasound in 8 weeks. Spent over 20 minutes face-to-fa ce. More than 50% was counseling . [id number] Ari Warren MD [place] [address] [address] 08/24/2023 12:19:09 08/24/2023 13:00:12 Cyst of right ovary [id number] 6319143 N83.291 R10.2 [id number] Ari Warren MD [place] [address] [address] 08/31/2023 10:44:30 08/31/2023 11:59:35 Cyst of ovary 84638196 N83.209 43-year-ol d female presents for follow-up on ovarian cyst. Pelvic ultrasound performed recently. This was a follow-up ultrasound . She is some prominent right ovarian cyst that were adjacent. This had the appearance of a serous cystadenom a. She had a serous cystadenom a on the contralate ral side. The ultrasound today showns Two follicles on the right ovary. Discussed these findings. We reviewed images together. she has no symptoms. She has no complaints . Health Concerns Section Related Observation LastModified by Organization Detai ls LastModified Time None Recorded Concern Status LastModified by Organization Details LastModified Time None Recorded Advance Directives Directive None Recorded Payers Insurance Date Sequence Insurance Name Policy Number Policy Walsh Covered Member ID Walsh Member ID Guarantor Name 08/28/2023 1 [facility] - DOS ON OR AFTER 21 (MEDICAID REPLACEMENT - HMO) Fifi Trevino [id number] Fifi Trevino 05/01/2023 1 [facility] - DOS ON OR AFTER 21 (MEDICAID REPLACEMENT - HMO) Fifi Trevino [id number] Fifi Trevino Notes Date Note Type Note Provider Name and Address Organization Details Recorded Time 02/23/2023 text/html this patient is a 42-year-old female who presents for ER follow-up. Patient has had left lower quadrant pain that radiates into her groin and suprapubic area. She has a large left lower quadrant incision site for laparoscopy. There is a suture in the fascia in that area. This is the likely etiology of her pain. The ER obtain a CT scan. There is nothing that correlates with her clinical findings. We talked about possible cause of her pain. Is most likely the suture in the fascia. We will obtain a pelvic ultrasound and have the patient back. She has right-sided cystic structure on CT. There is no ovary on this side. Ari Warren MD [address], [place], [address], [facility] 02/23/2023 14:40:10 03/02/2023 text/html Patient is a 42-year-old female presents for follow-up on pelvic pain. She had a pelvic ultrasound. Some right ovarian cysts were appreciated. There are to that together measure 5 cm. They are adjacent to each other. These occurred over short period time and are not likely to be the serous cystadenoma type lesion that was found on her left ovary. She had a large left-sided serous cystadenoma that was removed. She is having some postoperative pain still. She had a large incision site on the left for the large bag that was required. She has pain rating aiding into her groin. It is improving slowly. When the delayed absorbable suture breaks down she should be much improved. We continued to we agreed to continue to watch. We will repeat ultrasound in 8 weeks. Spent over 20 minutes [id number]. More than 50% was counseling. Ari Warren MD [address], [place], [address], [facility] 03/02/2023 14:44:33 08/31/2023 text/html 43-year-old pj murrell presents for follow-up on ovarian cyst. Pelvic ultrasound performed recently. This was a follow-up ultrasound. She is some prominent right ovarian cyst that were adjacent. This had the appearance of a serous cystadenoma. She had a serous cystadenoma on the contralateral side. The ultrasound today showns Two follicles on the right ovary. Discussed these findings. We reviewed images together. she has no symptoms. She has no complaints. Ari Warren MD [address], [place], [address], [place] [facility] 08/31/2023 11:47:39 OBGyn Episode Ob Episode Information Episode Created Date Number of Fetuses Patient Bloodtype Patient rh Status Prepregnancy Weight lbs Domestic Partner Domestic Partner Phone Father Name Huc Ob Status 12/26/19 23 1 CLOSED Fetus Data First Name Last Name Admitted to NICU Weight (g) Sex Living Outcome Pediatric Complications Fetus ID Race Codes Race Delivery Type 2834.95 M Full Term Primary Андрей Calculation Initial Андрей Date Initial Exam Date Initial Exam Provider Initial Ultrasound Date Last Menstrual Period Date Ultra Sound Weeks Gestation 0 Eighteen To Twenty Week Андрей Update Ultra Sound Date Fundal Height At Umbil Quickening Date Ultra Sound Latest Weeks Gestation Final Аднрей Confirmed By Final Андрей Confirmed Date Final Андрей Date Ultra Sound Latest Days Gestation 0 0 Menstrual History Last Menstrual Date Menses Monthly On Bcp Conception Prior Menses Frequency Hcg Plus Date Menarche Onset Age Delivery Information Delivery Date Delivery Type Labor Anesthesia Weeks Gestation Incision Type Labor Labor Length Hrs Delivered By Post Complications Tubal Sterilization Discharge Date Comments 5 40 [facility] Discharge Information Feeding Method Contraceptive Method Maternal HG B and HCT Levels Ob Episode Information Episode Created Date Number of Fetuses Patient Bloodtype Patient rh Status Prepregnancy Weight lbs Domestic Partner Domestic Partner Phone Father Name Huc Ob Status 12/26/19 1 CLOSED Fetus Data First Name Last Name Admitted to NICU Weight (g) Sex Living Outcome Pediatric Complications Fetus ID Race Codes Race Delivery Type 2721.55 2 M Full Term Repeat Андрей Calculation Initial Андрей Date Initial Exam Date Initial Exam Provider Initial Ultrasound Date Last Menstrual Period Date Ultra Sound Weeks Gestation 0 Eighteen To Twenty Week Андрей Update Ultra Sound Date Fundal Height At Umbil Quickening Date Ultra Sound Latest Weeks Gestation Final Андрей Confirmed By Final Андрей Confirmed Date Final Андрей Date Ultra Sound Latest Days Gestation 0 0 Menstrual History Last Menstrual Date Menses Monthly On Bcp Conception Prior Menses Frequency Hcg Plus Date Menarche Onset Age Delivery Information Delivery Date Delivery Type Labor Anesthesia Weeks Gestation Incision Type Labor Labor Length Hrs Delivered By Post Complications Tubal Sterilization Discharge Date Comments [address] [facility] Discharge Information Feeding Method Contraceptive Method Maternal HG B and HCT Levels
--- OUTSIDE RECORDS SUMMARY | 2025-01-24 18:31 | XMS_ITS | Referral Summary ---
Author Organization [facility] Address [address] [place] [address] Care Team Providers Care Cte Teacher Name Role Phone No, Physician Primary Care Provider [phone] Allergies No known active allergies Medications LORazepam [...] exceed 8 tablets/day. 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 Gender Identity Not on file Sexual Orientation Not on file Last Filed Vital Signs Vital Sign Reading Time Taken Comments Blood Pressure 112/76 08/20/2023 11:04 AM ASSISTANT PURCHASING MANAGER Pulse 59 08/20/2023 11:04 AM ASSISTANT PURCHASING MANAGER Temperature 36.7 C (98.1 F) 08/20/2023 11:04 AM ASSISTANT PURCHASING MANAGER Respiratory Rate 16 08/20/2023 9:45 AM ASSISTANT PURCHASING MANAGER Oxygen Saturation 99% 08/20/2023 11:04 AM ASSISTANT PURCHASING MANAGER Inhaled Oxygen Concentration - - Weight 79.4 kg (175 lb) 08/20/2023 9:45 AM ASSISTANT PURCHASING MANAGER Height 160 cm (5' 3) 08/20/2023 9:45 AM ASSISTANT PURCHASING MANAGER Body Mass Index 31 08/20/2023 9:45 AM ASSISTANT PURCHASING MANAGER Plan of Treatment Not on file Insurance [facility] Care Teams Cte Teacher Relationship Specialty Start Date End Date No, Physician PCP - General 05/28/23
[2025-01-24 18:43] VITALS: BP 121/67; PULSE 72; RESP 18; TEMP 37.4; O2SAT 100
[2025-01-24 19:04] LABS: EDSTREPNEGPOS1 Negative (Negative)
--- NOTE | 2025-01-24 19:38 | ED.GENADULT ---
HPI - General Adult General Chief complaint: Upper Respiratory Infection Stated complaint: Fever/Sore Throat Source: patient Mode of arrival: ambulatory Limitations: no limitations History of Present Illness HPI narrative: Patient presents for evaluation of sore throat. Symptom onset today. She also reports a fever any generalized body aches. No recent sick contacts to her knowledge. She has not taken any medication to assist with her symptoms. She does smoke marijuana. Denies any nausea, vomiting or diarrhea. Related Data Allergies Allergy/AdvReac Type Severity Reaction Status Date / Time morphine AdvReac Intermediate Itching Verified 01/24/25 18:45 clavulanic acid AdvReac Mild MAKES SICK Verified 01/24/25 18:45 Review of Systems Review of Systems: CONSTITUTIONAL: Reports fever. Denies chills, or sweats. EYES: Denies visual changes, redness, or discharge. ENT: Reports sore throat. Denies rhinorrhea, congestion, or otalgia. CARDIOVASCULAR: Denies chest pain, palpitations, or edema. RESPIRATORY: Denies cough or dyspnea. GASTROINTESTINAL: Denies abdominal pain, nausea, vomiting, or diarrhea. GENITOURINARY: Denies dysuria or hematuria. SKIN: Denies rash or itching. MUSCULOSKELETAL: Reports generalized body aches NEUROLOGIC: Denies headache, numbness, dizziness, or weakness. PSYCHIATRIC: Denies anxiety or depression. PMFSH Past Medical History Medical History No pertinent past medical history Surgical History Surgical History No pertinent past surgical history Family History Family History Mother Family history unknown Social History Social History Smoking packs per day: 1.5 Smoking cigarettes per day: 30.0 Years smoked: 20 Smoking pack-years: 30.00 Tobacco type: e-cigarettes/vaping Additional smoking assessment comments: VAPING FOR 2 YRS, NO LONGER SMOKING CIGARETTES Alcohol intake: never Substance use type: marijuana Other substance usage details: DAILY Living arrangements: with family Exam Narrative: GENERAL: Well-appearing, well-nourished, and in no acute distress. HEAD: Normocephalic, atraumatic. EYES: PERRLA and EOMI. ENT: Nares clear, no rhinorrhea or epistaxis. Mucous membranes moist. Bilateral tonsillar enlargement with white/green exudate. Uvula is midline. Bilateral TMs pearly cunningham nonbulging NECK: Supple. No adenopathy or masses. No carotid bruits or JVD CHEST: Clear to auscultation. No respiratory distress. No wheezes rales or rhonchi HEART: Regular rate and rhythm. No murmur heard. Normal peripheral pulses. ABDOMEN: Soft, nontender, nondistended, normal active bowel sounds. EXTREMITIES: Normal range of motion. No edema. SKIN: Warm, dry, no rash. NEURO: No focal deficits. Alert and oriented x3. PSYCH: Normal mood and affect. Course Course Emergency Course: This is a 44-year-old female who presented for evaluation of sore throat. Rapid strep negative. Through shared decision making opted proceed with antibiotic therapy. She did confirm she is not allergic to amoxicillin so that was sent to her pharmacy. Recommend increase hydration [id number] agents for symptom management. Patient to follow-up with primary care provider and go to the ER for worsening symptoms. She is in agreement with plan of care. Level of Care: Express Care Visit Vital Signs Vital signs: Vital Signs Temperature 37.4 C 01/24/25 18:43 Pulse Rate 72 01/24/25 18:43 Respiratory Rate 18 01/24/25 18:43 Blood Pressure 121/67 01/24/25 18:43 Pulse Oximetry 01/24/25 18:43 Oxygen Delivery Room Air 01/24/25 18:43 Temperature 37.4 C 01/24/25 18:43 Pulse Rate 72 01/24/25 18:43 Respiratory Rate 18 01/24/25 18:43 Blood Pressure 121/67 01/24/25 18:43 Pulse Oximetry 01/24/25 18:43 Oxygen Delivery Room Air 01/24/25 18:43 Medical Decision Making Vital Signs Vital Signs: Vital Signs Temperature 37.4 C 01/24/25 18:43 Pulse Rate 72 01/24/25 18:43 Respiratory Rate 18 01/24/25 18:43 Blood Pressure 121/67 01/24/25 18:43 Pulse Oximetry 01/24/25 18:43 Oxygen Delivery Room Air 01/24/25 18:43 Temperature 37.4 C 01/24/25 18:43 Pulse Rate 72 01/24/25 18:43 Respiratory Rate 18 01/24/25 18:43 Blood Pressure 121/67 01/24/25 18:43 Pulse Oximetry 100 01/24/25 18:43 Oxygen Delivery Room Air 01/24/25 18:43 Lab Data Labs: Lab Results 01/24/25 Range/Units 19:02 POC Grp A Strep Screen Negative (Negative) Discharge Plan Discharge Clinical Impression: Pharyngitis Patient Disposition: Home Condition: Stable Instructions: Antibiotic Form, Pharyngitis (ED) Patient Language: Norwegian Prescriptions: New amoxicillin 500 mg tablet 500 mg PO Q12H Qty: 20 0RF Follow-up/Referrals: Tony Weiss MD [Physician] - Stand Alone Forms: Work/School Release IP Time of Disposition: 19:30
== END 2025-01-24 19:36 | disposition home or self-care (01) ==
PROVIDERS: Emergency Provider Nurse Practitioner
DX: J02.9 Acute pharyngitis, unspecified (principal); F17.290 Nicotine dependence, other tobacco product, uncomplicated; F12.90 Cannabis use, unspecified, uncomplicated
CPT/HCPCS: 87081; 87880; 99213; G0463

== ENCOUNTER 2025-03-17 10:41 | Emergency (ER) | payer OTHER, SELFPAY ==
--- NOTE | 2025-03-17 10:41 | ED.UPPEXIN ---
HPI - Extremity Injury (Upper) General Chief Complaint: Extremity Injury, Upper Stated Complaint: Right Shoulder Injury Time Seen by Provider: 03/17/25 10:41 Source: patient Mode of arrival: ambulatory Limitations: no limitations History of Present Illness HPI narrative: Fifi is a 44 year old female patient presenting to the clinic today with c/o right shoulder pain x1 day. She reports she injured at work yesterday. She reports she has to reaching at work to water the [employer]. States that there is 1 table that she has to extend her arm in reach over to water the [employer]. Has had discussion with her boss for this in the past and they have not made any changes. States she is having pain to the right shoulder anterior joint with radiation of pain up into her neck and down her arm. Has taken ibuprofen for pain. Rates pain currently an 8/10. She denies any chest pain or shortness of breath. Related Data Allergies Allergy/AdvReac Type Severity Reaction Status Date / Time morphine AdvReac Intermediate Itching Verified 01/24/25 18:45 clavulanic acid AdvReac Mild MAKES SICK Verified 01/24/25 18:45 Review of Systems Review of Systems: Pertinent positives per HPI. Patient denies any fever, chills, rash, headache, visual changes, dizziness, cough, runny nose, sore throat, shortness of breath, chest pain, palpitations, nausea, vomiting, diarrhea, constipation, abdominal pain, or any urinary issues. COUNTS INCLUDE 234 BEDS AT THE [facility] Past Medical History Medical History No pertinent past medical history Surgical History Surgical History No pertinent past surgical history Family History Family History Mother Family history unknown Social History Social History Smoking packs per day: 1.5 Smoking cigarettes per day: 30.0 Years smoked: 20 Smoking pack-years: 30.00 Tobacco type: e-cigarettes/vaping Additional smoking assessment comments: VAPING FOR 2 YRS, NO LONGER SMOKING CIGARETTES Alcohol intake: never Substance use type: marijuana Other substance usage details: DAILY Living arrangements: with family Comments At the time of my signature, I reviewed and agree with the nursing past medical, surgical, social, and family history. There is no relevant family history pertinent to the patient complaint. Exam Narrative: General: Well-developed, well nourished, in no apparent distress Head: Normocephalic, atraumatic. Cardio: Regular rate and rhythm, s1 and s2 normal, no murmur appreciated. Resp: Clear to auscultation bilaterally, no rhonchi, rales, wheezing or rubs. Musculoskeletal: No deformity, tender to palpation over the anterior and posterior shoulder joint, tenderness to palpation over the posterior lateral right cervical and trapezius musculature, pain with Gomez, empty can, in full can testing however there is no laxity, drop-arm test negative, grossly normal range of motion, muscle strength strong and equal, peripheral pulse strong, no edema, no cyanosis, normal gait and station Course Course Emergency Course: Portions of this record may have been created with voice recognition software. Level of Care: Express Care Visit Vital Signs Vital signs: Vital Signs Temperature 36.6 C 03/17/25 10:44 Pulse Rate 69 03/17/25 10:44 Respiratory Rate 16 03/17/25 10:44 Blood Pressure 131/87 03/17/25 10:44 Pulse Oximetry 100 03/17/25 10:44 Oxygen Delivery Room Air 03/17/25 10:44 Temperature 36.6 C 03/17/25 10:44 Pulse Rate 69 03/17/25 10:44 Respiratory Rate 16 03/17/25 10:44 Blood Pressure 131/87 03/17/25 10:44 Pulse Oximetry 100 03/17/25 10:44 Oxygen Delivery Room Air 03/17/25 10:44 Vital signs reviewed MDM - Extremity Injury (Upper) MDM Narrative Medical decision making narrative: At the time of visit patient is resting comfortably on the exam table. Patient appears to be nontoxic. c/o right shoulder pain x1 day. She reports she injured at work yesterday. 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 States that there is 1 table that she has to extend her arm in reach over to water the plans. Has had discussion with her boss for this in the past and they have not made any changes. States she is having pain to the right shoulder anterior joint with radiation of pain up into her neck and down her arm. Has taken ibuprofen for pain. Rates pain currently an 8/10. She denies any chest pain or shortness of breath. On exam patient has tenderness to palpation over the anterior and posterior shoulder as well as over the posterior lateral cervical neck/trapezius. No sign rotator cuff tear Plan: I suspect patient has right shoulder strain-possible tendinitis. Prescription for Medrol Dosepak was sent to the pharmacy. Arm sling and ice pack was given. Supportive measures were discussed with the patient and they voiced understanding discharge instructions and agrees to treatment plan. Return precautions reviewed Differential Diagnosis Differential diagnosis: Likely dislocation of shoulder and other (Shoulder sprain, shoulder strain, shoulder tendinitis, posterior cervical lateral musculature strain, rotator cuff injury) Discharge Plan Discharge Clinical Impression: Right shoulder strain, Right shoulder tendinitis Patient Disposition: Home Condition: Stable Instructions: Antibiotic Form, How to Use a Sling (ED), Shoulder Sprain (ED), Tendinitis (ED) Additional Instructions: Rest, ice, elevate, arm sling time 3 days as directed Take Medrol Dosepak as prescribed No use of the right arm x3 days. Tylenol/motrin for pain as discussed. Follow up with your PCP if symptoms persist more than 1 week. Patient Language: Swedish Prescriptions: New methylprednisolone [Medrol ([place])] 4 mg tablets,dose pack See Rx Instructions PO .COMPLEX Qty: 21 0RF Rx Instructions: orally per package directions Follow-up/Referrals: UNKNOWN,DOCTOR [Non-Staff] Time of Disposition: 10:57 Quality NIHSS Nursing Documentation ED NIHSS nursing documentation: reviewed/agree
--- OUTSIDE RECORDS SUMMARY | 2025-03-17 10:43 | XMS_ITS | Clinical Summary ---
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 Gender Identity Not on file Sexual Orientation Not on file Obstetrics History Last Filed Vital Signs Vital Sign Reading Time Taken Comments Blood Pressure 112/76 08/20/2023 11:04 AM CLINICAL CODER Pulse 59 08/20/2023 11:04 AM CLINICAL CODER Temperature 36.7 C (98.1 F) 08/20/2023 11:04 AM CLINICAL CODER Respiratory Rate 16 08/20/2023 9:45 AM CLINICAL CODER Oxygen Saturation 99% 08/20/2023 11:04 AM CLINICAL CODER Inhaled Oxygen Concentration - - Weight 79.4 kg (175 lb) 08/20/2023 9:45 AM CLINICAL CODER Height 160 cm (5' 3) 08/20/2023 9:45 AM CLINICAL CODER Body Mass Index 31 08/20/2023 9:45 AM CLINICAL CODER Plan of Treatment Health Maintenance Due Date Last Done Comments Breast Cancer Screening-Mammogram 1982 Cervical Cancer Screening 1982 Depression Screening 1982 Hepatitis C Screening 1982 Varicella Vaccines (1 of 2 - 13+ 2-dose series) 1995 Hepatitis B Screening 2000 Regular Well Visit/Exam 18-64 2000 HPV Vaccines (1 - 3-dose SCD M series) 2009 DTaP/Tdap/Td Vaccine (2 - Td or Tdap) 06/18/2020 06/18/2010 Influenza Vaccine (#1) 2025 4, 04/26/2010 Pneumococcal vaccine <65 Aged Out No longer eligible based on patient's age to complete this topic Insurance [facility] Care Teams Riveting Machine Operator Relationship Specialty Start Date End Date No, Physician PCP - General 05/28/23
--- OUTSIDE RECORDS SUMMARY | 2025-03-17 10:43 | XMS_ITS | Clinical Summary ---
Author Organization [facility] Address [address] [place] [id number] Phone Care Team Providers Care Vegetable Grader Name Role Phone Provider, Unknown Primary Care [...] Virus (HCV) Screening 1982 TdaP Immunization 1982 Hepatitis B Immunization (1 of 3 - 19+ 3-dose series) 2001 Pap Smear 2003 Human Papillomavirus (HPV) Immunization (1 - 3-dose SCDM series) 2009 Cervical Cancer Screening (CCS) 2012 HPV/Cotest 2012 SARS-COV-2 Immunization (2023- season) 2024 Influenza Immunization (#1) 2025 Respiratory Syncytial Virus (RSV) Immunization (Adult) (1 - 1-dose 75+ series) 2057 Meningococcal Immunization (ACWY) Aged Out No longer eligible based on patient's age to complete this topic Pneumococcal Immunization Combined Aged Out No longer eligible based on patient's age to complete this topic Rotavirus Immunization Aged Out No lo nger eligible based on patient's age to complete this topic Insurance MEDICAID [facility] Care Teams Vegetable Grader Relationship Specialty Start Date End Date Provider, Unknown UNKNOWN PCP - General 03/27/20
[2025-03-17 10:44] VITALS: BP 131/87; PULSE 69; RESP 16; TEMP 36.6; O2SAT 100
== END 2025-03-17 11:00 | disposition home or self-care (01) ==
PROVIDERS: Emergency Provider Nurse Practitioner Family
DX: S46.911A Strain of unspecified muscle, fascia and tendon at shoulder and upper arm level, right arm, initial encounter (principal); M77.8 Other enthesopathies, not elsewhere classified; F17.290 Nicotine dependence, other tobacco product, uncomplicated; X50.0XXA Overexertion from strenuous movement or load, initial encounter
CPT/HCPCS: 99213; A4565; G0463